=== PATIENT | male | born 1945 | race Caucasian/White ===

== ENCOUNTER 2022-12-15 01:45 | Emergency (ER) | payer OTHER ==
--- OUTSIDE RECORDS SUMMARY | 2022-12-15 01:48 | XMS REPORT | Continuity of Care Document ---
:1945 Author Organization [facility] t Address [address] [place] [address] Care Team Providers Name Role Phone [phone] Primary Care Physician Unavailable JOAQUIN AGUIRRE Attending Clinician Unavailable BING FLORENTINO CHI Attending Clinician Unavailable SYSTEM, PROVIDER NOT IN Attending Clinician Unavailable Jann HURST, Benny Pino Attending Clinician NOLVIA RAMSEY Attending Clinician Unavailable ADRY LANDERS Attending Clinician Unavailable MANN SIMPSON Attending Clinician Unavailable Bashir Attending Clinician Unavailable Yanira Jalloh MA Attending Clinician Unavailable STACY CALDERA Attending Clinician Unavailable Amador Langford Attending Clinician [phone] KIERRA PAREDES Attending Clinician Unavailable BARB ALFREDO Attending Clinician Unavailable JOSÉ MCCURDY Attending Clinician Unavailable ASMITA WELLINGTON Attending Clinician Unavailable UMESH SUERO Attending Clinician Unavailable MCKINLEY MAGANA Attending Clinician Unavailable JOAQUIN AGUIRRE Admitting Clinician Unavailable BING FLORENTINO CHI Admitting Clinician Unavailable Bashir Admitting Clinician Unavailable BARB ALFREDO Admitting Clinician Unavailable ASMITA WELLINGTON Admitting Clinician Unavailable MCKINLEY MAGANA Admitting Clinician Unavailable Payers Payer Name Policy Type Policy Number Effective Date Expiration Date S guero [facility] MEDICARE [id number] 2021 ADVANTAGE 00:00:00 [facility] [id number] (MEDICARE 00:00:00 REPLACEMENT/ADVANTA GE - PPO) HUMANA CHOICE [id number] 2016 MEDICARE PPO 00:00:00 Problems Condition Condition Condition Status Onset Resolution Last Treating Co mments Source Name Details Category Date Date Treatment Clinician Date 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 Found on CT Scan 2010 Kidney Kidney Disease Active Overview: Method i stones stones 10-[address] 00:00: g of this Hospita 00 note l might be different from the original. 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 09-29 coronary coronary 00:00: Hospit a artery artery 00 l Chronic Chronic Disease Active Methodi kidney kidney 03-26 disease, disease, 00:00: Hospit a stage I stage I 00 l Diabetes Diabetes Disease Active Metho di mellitus mellitus 09-29 00:00: Hospita 00 l Hyperlipid Hyperlipid Disease Active 2007-0 M ethodi emia emia 09-29 00:00: Hospita 00 l Hypothyroi Hypothyroi Disease Active 2007-0 M ethodi dism dism 09-29 00:00: Hospita 00 l Allergies, Adverse Reactions, Alerts Allergy Allergy Status Severity Reaction(s) Onset Inactive Treating Comm ents Source Name Type Date Date Clinician No Known Propensi Active Method i Drug ty to 02-21 Allergie adverse 00:00: Hospita s reaction 00 l s to drug Family History Family Member Diagnosis Comments Start Date Stop Date Source [facility] Social History Social Habit Start Date Stop Date Quantity Comments Source Alcohol intake 2022-07-16 2022-07-16 Current drinker Metho dist 00:00:00 00:00:00 of [facility] (finding) Alcohol Comment 2016-07-25 2016-07-25 social [facility] 00:00:00 00:00:00 Hospital Tobacco use and 2016-02-22 2016-02-22 Smokeless tobacco [facility] exposure 00:00:00 00:00:00 non-user Hospital Sex Ass[birth year] At [birth year] [facility] 00:[facility] Hospital Smoking Status Start Date Stop Date Source Never smoked tobacco [facility] Medications Ordered Filled Start Stop Current Ordering Indication Dosage Frequency Signature Comments Components Source Medication Medication Date Date Medication? Clinician (SIG) Name Name ezetimibe Yes TAKE 1 Method i (ZETIA) 10 3-07 TABLET(10 st mg tablet 00:00: MG) BY Hospit a 00 MOUTH l DAILY Accu-Chek Yes [id number] USE M ethodi Fastclix 2-[address] Lancet Drum 00:00: THREE Hospi ta misc 00 TIMES l DAILY insulin Yes INJECT 30 Metho di ASPART 2-[address] (NovoLOG 00:00: SUBCUTANEO Hos rivera FlexPen 00 USLY DAILY l U-100 Insulin) 100 unit/mL (3 mL) insulin pen montelukast Yes TAKE 1 Meth annabel (SINGULAIR) 2-[address] 10 mg 00:00: DAILY Hospita tablet 00 l Tresiba Yes INJECT 30 Metho di FlexTouch 2-[address] U-200 200 00:00: SUBCUTANEO Ho spita unit/mL (3 00 USLY DAILY l mL) subcutaneou s pen pen needle, Yes USE 4 Metho di diabetic 1-[address] (BD 00:00: DAY Hospita Ultra-Fine 00 l Short Pen Needle) 31 gauge x 5/16" needle ezetimibe 2021-09- No TAKE 1 Metho di (ZETIA) 10 2-20 03-07 TABLET(10 st mg tablet 00:00: 00:00 MG) BY Hospi ta 00 :00 MOUTH l DAILY levothyroxi Yes TAKE 1 Meth annabel ne 9-27 TABLET(125 st (SYNTHROID) 00:00: MCG) BY Hos rivera 125 mcg 00 MOUTH l tablet DAILY Synthroid 2021- No TAKE 1 Metho di 125 mcg 06-20- TABLET st tablet 00:00: 00:00 DAILY Hospita 00 :00 l blood sugar Yes [id number] CHECK Methodi diagnostic [address] strips 00:00: TIMES Hospita (Accu-Chek 00 DAILYDX l Guide test CODE: E strips) 11.9 strip test strips montelukast 2022- No TAKE 1 Met hodi (SINGULAIR) 02-12 02-[address] 10 mg 00:00: 00:00 DAILY. Hospita tablet 00 :00 l pen needle, 2022- No USE 4 Meth annabel diabetic 3-29 01-[address] (BD 00:00: 00:00 DAYDX Hospita Ultra-Fine 00 :00 CODE: l Short Pen E11.9 Needle) 31 gauge x 5/16" needle ezetimibe 2021- No 10mg QD Take 1 Metho di (ZETIA) 10 -18 12-20 tablet (10 st mg tablet 00:00: 00:00 mg total) Ho spita 00 :00 by mouth l daily. Tresiba 2022- No INJECT 30 Meth annabel FlexTouch 1-25 02-[address] U-200 200 00:00: 00:00 SUBCUTANEO H ospita unit/mL (3 00 :00 USLY DAILY l mL) subcutaneou s pen insulin 2022- No INJECT 30 Meth annabel ASPART 1-16 02-[address] (NovoLOG 00:00: 00:00 SUBCUTANEO Ho spita Flexpen 00 :00 USLY DAILY l U-100 Insulin) 100 unit/mL (3 mL) insulin pen Accu-Chek 2020-09- No [id number] USE Methodi Fastclix 11-25 02-[address] Lancet Drum 00:00: 00:00 THREE Hosp pritesh misc 00 :00 TIMES l DAILY Synthroid 2020-09- No TAKE 1 Metho di 125 mcg 09-29- TABLET st tablet 00:00: 00:00 DAILY Hospita 00 :00 l rosuvastati 2021-0 Yes 40mg QD Take 40 mg Methodi n (CRESTOR) 9-[address] 40 MG 12:16: daily. Hospita tablet 56 l montelukast 2021- No TAKE 1 Met hodi (SINGULAIR) 9-16 05-[address] 10 mg 00:00: 00:00 DAILY. Hospita tablet 00 :00 l polyethylen Yes 17g Q24H Take 17 g M ethodi e glycol 7-[address] (MIRALAX) 09:33: daily as Hosp pritesh 17 gram 10 needed for l packet constipati on. metoprolol Yes 25mg Q.5D Take 25 mg M ethodi succinate 7-[address] XL 09:33: (two) Hospita (TOPROL-XL) 04 times a l 25 mg 24 hr day. tablet lisinopril Yes 10mg QD Take 10 mg M ethodi (PRINIVIL,Z 7-[address] ESTRIL) 10 09:33: every Hospit a mg tablet 03 evening. l coenzyme 0 Yes 10mg Q.5D Take 10 mg Met hodi Q10 300 mg [address] capsule 09:32: (two) Hospita 52 times a l day. clopidogreL Yes 75mg Take 75 mg Methodi (PLAVIX) [address] mg tablet 09:32: Hospita 51 l apixaban Yes 5mg Q.5D Take 5 mg Meth annabel (ELIQUIS) 5 7-[address] mg tablet 09:32: (two) Hospita 44 times a l day. pen needle, 2021- No USE 4 Meth annabel diabetic 6-07 03-[address] (BD 00:00: 00:00 DAYDX Hospita Ultra-Fine 00 :00 CODE: l Short Pen E11.9 Needle) 31 gauge x 5/16" needle blood sugar 2021- No [id number] Testing 3 Methodi diagnostic 02-01 05-[address] strips 00:00: 00:00 dailyDX Hospita (Accu-Chek 00 :00 Code: l Guide test E11.9 strips) strip test strips blood-gluco Yes [id number] Use as Methodi se meter 02-[address] (ACCU-CHEK 00:00: DX CODE: Hos rivera GUIDE 00 E11.9 l GLUCOSE METER) misc blood Yes [id number] Use as Metho di glucose 02-[address] control 00:00: Hospita high,low 00 l (ACCU-CHEK GUIDE L1-L2 CTRL RAMON) solution alcohol Yes [id number] Use as Met hodi swabs pads, 02-[address] medicated 00:00: times Hospita 00 daily l amlodipine amlodipine No amlodipine Kayleigh 2.5 2.5 3-22 2.5 Orthope mg-atorvast mg-atorvast 00:00: mg-atorvas dic atin 10 mg atin 10 mg 00 tatin 10 Sports tablet RX tablet RX mg tablet Medicin by other MD by other MD RX by e other levothyroxi levothyroxi No levothyrox Kayleigh ne 25 mcg ne 25 mcg 3-22 ine 25 mcg Orthope tablet RX tablet RX 00:00: tablet RX dic by other MD by other MD 00 by other Sports Medicin e metoprolol metoprolol No metoprolol Kayleigh succinate succinate 3-22 succinate Orthope ER 25 mg ER 25 mg 00:00: ER 25 mg d ic tablet,exte tablet,exte 00 tablet,ext Sports nded nded ended Medicin release 24 release 24 release 24 e hr RX by hr RX by hr RX by other MD other other polyethylen polyethylen No polyethyle Kayleigh e glycol e glycol 3-22 ne glycol Or thope 1450 (bulk) 1450 (bulk) 00:00: 1450 dic powder RX powder RX 00 (bulk) Spo rts by other MD by other MD powder RX Medicin by other e docusate Yes 1{capsu Take 1 Meth annabel sodium 2-05 le} capsule by st (COLACE) 00:00: mouth as Hospi ta 100 MG 00 needed. l capsule omega-3 2011-09 Yes 1{tbl} QD Take 1 Method i fatty 1-[address] acids-fish 00:00: mouth Hospit a oil 00 every l 300-1,000 morning. mg capsule fluticasone Yes 2{spray QD 2 sprays Methodi (FLONASE) 9-28 } into each st 50 00:00: nostril Hospita mcg/actuati 00 daily. l on nasal spray Accu-Chek Accu-Chek No Accu-Chek Kayleigh Fastclix Fastclix Fastclix Yuliya hicks Lancet Drum Lancet Drum Lancet dic USE USE Drum USE Sports DIRECTED DIRECTED Medicin THREE TIMES THREE TIMES DIRECTED e DAILY DAILY THREE TIMES DAILY Accu-Chek Accu-Chek No Accu-Chek Kayleigh Guide test Guide test Guide test Orthope strips strips strips dic CHECK THREE CHECK THREE CHECK Sports TIMES DAILY TIMES DAILY THREE Medicin TIMES e DAILY BD BD No BD Kayleigh Ultra-Fine Ultra-Fine Ultra-Fine Orthope Short Pen Short Pen Short Pen dic Needle 31 Needle 31 Needle 31 Sports gauge x gauge x gauge x Medici n 02/11" 02/11" 02/11" e cefuroxime cefuroxime No cefuroxime Kayleigh axetil 250 axetil 250 axetil 250 Orthope mg tablet mg tablet mg tablet dic TAKE 1 TAKE 1 TAKE 1 Sports TABLET BY TABLET BY TABLET BY Medicin MOUTH TWICE MOUTH TWICE MOUTH e DAILY DAILY TWICE DAILY clopidogrel clopidogrel No clopidogre Kayleigh 75 mg 75 mg l 75 mg Orthope tablet TAKE tablet TAKE tablet dic 1 TABLET BY 1 TABLET BY TAKE 1 Sports MOUTH EVERY MOUTH EVERY TABLET BY Medicin DAY DAY MOUTH e EVERY DAY Eliquis 5 Eliquis 5 No Eliquis 5 Kayleigh mg tablet mg tablet mg tablet Orthope dic Sports Medicin e ezetimibe ezetimibe No ezetimibe Kayleigh 10 mg 10 mg 10 mg Orthope tablet tablet tablet dic Sports Medicin e fluticasone fluticasone No fluticason Kayleigh propionate propionate e Ort hope 50 50 propionate dic mcg/actuati mcg/actuati 50 S ports on nasal on nasal mcg/actuat M edicin spray,suspe spray,suspe ion nasal e nsion USE 1 nsion USE 1 spray,susp SPRAY IN SPRAY IN ension USE EACH EACH 1 SPRAY IN NOSTRIL NOSTRIL EACH DAILY DAILY NOSTRIL DAILY ID NOW ID NOW No ID NOW Kayleigh COVID-19 COVID-19 COVID-19 Ort hope Test Kit Test Kit Test Kit dic TEST TEST TEST Sports DIRECTED DIRECTED DIRECTED Med icin TODAY TODAY TODAY e lisinopril lisinopril No lisinopril Kayleigh 10 mg 10 mg 10 mg Orthope tablet tablet tablet dic Sports Medicin e meloxicam meloxicam No 1 BID meloxicam Kayleigh 7.5 mg 7.5 mg 7.5 mg Orthope tablet Take tablet Take tablet dic 1 tablet 1 tablet Take 1 Sport s twice a day twice a day tablet Medicin by oral by oral twice a e route for route for day by 30 days. 30 days. oral route start after start after for 30 finishing finishing days. steroids. steroids. start after finishing steroids. metoprolol metoprolol No metoprolol Kayleigh succinate succinate succinate Orthope ER 50 mg ER 50 mg ER 50 mg dic tablet,exte tablet,exte tablet,ext Sports nded nded ended Medicin release 24 release 24 release 24 e hr hr hr montelukast montelukast No montelukas Kayleigh 10 mg 10 mg t 10 mg Orthope tablet RX tablet RX tablet RX dic by other MD by other MD by other Sports MD Medicin e Novolog Novolog No Novolog Kayleigh Flexpen Flexpen Flexpen Orthop e U-100 U-100 U-100 dic Insulin Insulin Insulin Sports aspart 100 aspart 100 aspart 100 Medicin unit/mL (3 unit/mL (3 unit/mL (3 e mL) mL) mL) subcutaneou subcutaneou subcutaneo s s us prednisone prednisone No prednisone Kayleigh 10 mg 10 mg 10 mg Orthope tablets in tablets in tablets in dic a dose pack a dose pack a dose Sports take 6 on take 6 on pack take Medicin day 1/5day day 1/5day 6 on day e 2/4day3/3da 2/4day3/3da 1/5day y4/2day5/1d y4/2day5/1d 2/4day3/3d ay6 take 6 ay6 take 6 ay4/2day5/ on day on day 1day6 take 1/5day 1/5day 6 on day 2/4day3/3da 2/4day3/3da 1/5day y4/2day5/1d y4/2day5/1d 2/4day3/3d ay6 ay6 ay4/2day5/ 1day6 rosuvastati rosuvastati No rosuvastat Kayleigh n 40 mg n 40 mg in 40 mg Ortho pe tablet tablet tablet dic Sports Medicin e Synthroid Synthroid No Synthroid Kayleigh 125 mcg 125 mcg 125 mcg Orthop e tablet tablet tablet dic Sports Medicin e tramadol 50 tramadol 50 No tramadol Kayleigh mg tablet mg tablet 50 mg Orth ope TAKE 1 TAKE 1 tablet dic TABLET BY TABLET BY TAKE 1 Spo rts MOUTH EVERY MOUTH EVERY TABLET BY Medicin 6 HOURS 6 HOURS MOUTH e NEEDED FOR NEEDED FOR EVERY 6 PAIN PAIN HOURS NEEDED FOR PAIN Tresiba Tresiba No Tresiba Kayleigh FlexTouch FlexTouch FlexTouch Orthope U-200 U-200 U-200 dic insulin 200 insulin 200 insulin Sports unit/mL (3 unit/mL (3 200 Med icin mL) mL) unit/mL (3 e subcutaneou subcutaneou mL) s pen s pen subcutaneo us pen Immunizations Ordered Immunization Filled Immunization Date Status Commen ts Source Name Name PFIZER COVID-19 MRNA 2021-11-17 Completed Meth odist VACCINATION 00:00:00 [facility] PFIZER COVID-19 MRNA 2020-11-11 Completed Meth odist VACCINATION 00:00:00 [facility] PFIZER COVID-19 MRNA 2020-10-21 Completed Meth odist VACCINATION 00:00:00 [facility] pneumococcal pneumococcal 2016-08-02 Completed Kayleigh polysaccharide PPV23 polysaccharide PPV23 00:00:00 [facility] Sports Medicin e Vital Signs Vital Name Observation Time Observation Value Comments Source WEIGHT 2020-05-11 09:30:00 95.3 kg Procedures Procedure Date / Time Performing Clinician Source Performed COMPREHENSIVE METABOLIC 2022-07-09 13:46:00 Benny Da Silva [facility] PANEL HEMOGLOBIN A1C 2022-07-09 13:46:00 Benny Da Silva [facility] LIPID PANEL 2022-07-09 13:46:00 Benny Da Silva [facility] THYROID STIMULATING 2022-07-09 13:46:00 Benny Da Silva [facility] HORMONE T4, FREE 2022-07-09 13:46:00 Benny Da Silva [facility] RADEX SPI LUMBOSAC 2/3 2022-05-20 00:00:00 Mick steinberg [facility] VIE[facility] Sports Medicine COMPREHENSIVE METABOLIC 2022-03-12 13:25:00 Benny Da Silva [facility] PANEL HEMOGLOBIN A1C 2022-03-12 13:25:00 Benny Da Silva [facility] LIPID PANEL 2022-03-12 13:25:00 Benny Da Silva [facility] MICROALBUMIN / 2022-03-12 13:25:00 Benny Da Silva [facility] CREATININE URINE RATIO THYROID STIMULATING 2022-03-12 13:25:00 Benny Da Silva [facility] HORMONE T4, FREE 2022-03-12 13:25:00 Benny Da Silva [facility] Colonoscopy 2020-05-03 00:00:00 Kayleigh Ortho pedic Sports Medicine Plan of Care Planned Activity Planned Date Details Comments Source Future Scheduled 2022-12-05 COVID-19 VACCINE (4 - [facility] Test 14:53:33 Booster for Pfizer series) [code = COVID-19 VACCINE (4 - Booster for Pfizer series)] Future Scheduled 2022-12-05 INFLUENZA VACCINE Method [facility] Test 14:53:33 [code = INFLUENZA VACCINE] Future Scheduled 2022-12-05 Hepatitis C screening [facility] Test 14:53:33 (procedure) [code = 165316878] Future Scheduled 2022-12-05 SHINGLES VACCINES (1 [facility] Test 14:53:33 of 2) [code = SHINGLES VACCINES (1 of 2)] Future Scheduled 2022-12-05 COLONOSCOPY SCREENING [facility] Test 14:53:33 [code = COLONOSCOPY SCREENING] Future Scheduled 2022-12-05 HEPATITIS B VACCINES [facility] Test 14:53:33 (1 of 3 - Risk 3-dose series) [code = HEPATITIS B VACCINES (1 of 3 - Risk 3-dose series)] Future Scheduled 2022-12-05 65+ [facility] 14:53:33 VACCINE (2 - PCV) [code = 65+ PNEUMOCOCCAL VACCINE (2 - PCV)] Future Scheduled 2022-12-05 DIABETIC FOOT EXAM [facility] Test 14:53:33 [code = DIABETIC FOOT EXAM] Future Scheduled 2022-12-05 DIABETES: RETINAL EYE Me [facility] Test 14:53:33 EXAM [code = DIABETES: RETINAL EYE EXAM] Encounters Start End Encounter Admission Attending Care Care Encounter Source Date/Time Date/Time Type Type Clinicians Facility Department ID 2022-11-15 Outpatient TIMOTHYEVGENY Susan/Hep/Nu [id number] 12:55:51 JOAQUIN t Anders n 2022-06-01 Outpatient BING FLORENTINO EVGENY Susan/Hep/Nu [id number] 10:39:14 t [facility] n 2022-01-16 Outpatient SYSTEM, EVGENY PEPPER [id number] 12:34:59 PROVIDER Kapil middleton 2021-10-05 Outpatient SYSTEM, EVGENY PEPPER [id number] 09:05:44 PROVIDER Kapilrose middleton 2021-08-20 Outpatient SYSTEM, EVGENY PEPPER [id number] 11:46:31 PROVIDER Kapilrose middleton 2021-07-12 Outpatient SYSTEM, EVGENY PEPPER [id number] 13:55:47 PROVIDER Kapilrose middleton 2022-12-03 2022-12-03 Refill Jann, 1.2.840.1 [id number] Methodi 00:00:00 00:00:00 Benny Pino 08413.1.1 811 s t 3.430.2.7 Hospit a .3.766950 l .8 2022-11-07 2022-11-07 Outpatient BOZENA RAMSEY, EVGENY PEPPER [id number] 07:20:20 07:20:20 NOLVIA middleton 2022-11-04 2022-11-04 Refill Da Silva, 1.2.840.1 [id number] Methodi 00:00:00 00:00:00 Benny Pino 98636.1.1 137 s t 3.430.2.7 Hospit a .3.893216 l .8 2022-11-02 2022-11-02 Refill Jann, 1.2.840.1 [id number] Methodi 00:00:00 00:00:00 Benny Pino 01136.1.1 011 s t 3.430.2.7 Hospit a .3.415287 l .8 2022-11-02 2022-11-02 Refsuzanna Da Silva, 1.2.840.1 [id number] Methodi 00:00:00 00:00:00 Benny Pino 80109.1.1 218 s t 3.430.2.7 Hospit a .3.708046 l .8 2022-10-09 2022-10-09 Refsuzanna Da Silva, 1.2.840.1 [id number] Methodi 00:00:00 00:00:00 eBnny Pino 28448.1.1 439 s t 3.430.2.7 Hospit a .3.178087 l .8 2022-09-17 2022-09-17 Danielle Da Silva, 1.2.840.1 [id number] Methodi 00:00:00 00:00:00 Benny Pino 05199.1.1 841 s t 3.430.2.7 Hospit a .3.054477 l .8 2022-08-02 2022-08-02 Outpatient ADRY HERRON MDA MDA [id number] 12:29:08 23:59:00 Kapil middleton 2022-08-02 2022-08-02 Outpatient BOZENA SIMPSON MDA MDA [id number] 11:38:15 12:28:00 Carrillo middleton 2022-07-16 2022-07-16 Telemedici Jann, 1.2.840.1 [id number] Methodi 09:00:00 09:33:43 ne Benny Pino 39426.1.1 866 s t 3.430.2.7 Hospit a .3.791191 l .8 2022-07-16 2022-07-16 Outpatient Paul QUAN AOSHERYL [id number] Kayleigh 00:00:00 00:00:00 Tone [id number] Orth ope dic Sports Medicin e 2022-07-16 2022-07-16 Alex Jalloh, 1.2.840.1 [id number] Methodi 00:00:00 00:00:00 Only Yanira 54396.1.[address] 3.430.2.7 Hospit a .3.919112 l .8 2022-07-16 2022-07-16 Outpatient [facility] [id number] Stites 00:00:00 00:00:[address] 2022-06-25 2022-06-25 Refill Jann, 1.2.840.1 [id number] Methodi 00:00:00 00:00:00 Benny J. 76442.1.1 072 s t 3.430.2.7 Hospit a .3.804472 l .8 2022-06-20 2022-06-20 Refsuzanna Da Silva, 1.2.840.1 [id number] Methodi 00:00:00 00:00:00 Benny J. 68263.1.1 648 s t 3.430.2.7 Hospit a .3.555831 l .8 2022-05-23 2022-05-23 Outpatient STACY POOLE [facility] [id number] 08:39:17 09:48:33 Kapil middleton 2022-05-20 2022-05-20 Outpatient FOG_Umesh QUAN AO [id number] Kayleigh 00:00:00 00:00:00 Tone [id number] Orth ope dic Sports Medicin e 2022-05-20 2022-05-20 Amador QUAN [place] - Ortho 2021lea 00:00:00 00:00:00 Primitivo Conde MD: [id number] FOG_Ofc dic [facility] [place], [place] [phone] , Ph. [phone] 2022-05-20 2022-05-20 Outpatient AVELINA Langford [id number] 00:00:00 00:00:00 Amador Echols [id number] 2022-04-22 2022-04-22 Outpatient FOG_Umesh QUAN AOSM [id number] Kayleigh 00:00:00 00:00:00 Tone [id number] [facility] ope dic Sports Medicin e 2022-03-19 2022-03-19 Telemedici Jann, 1.2.840.1 [id number] Methodi 09:00:00 09:20:07 torey Pino 67392.1.1 052 s t 3.430.2.7 Hospit a .3.389168 l .8 2022-03-19 2022-03-19 Alex Jalloh 1.2.840.1 [id number] Methodi 00:00:00 00:00:00 Only Yanira 11923.1.[address] 3.430.2.7 Hospit a .3.916608 l .8 2022-03-19 2022-03-19 Outpatient [facility] [id number] [address] [place] [address] 00:00:00 00:00:[address] 2022-02-13 2022-02-13 Refsuzanna Da Silva, 1.2.840.1 [id number] Methodi 00:00:00 00:00:00 Benny Pino 82408.1.1 870 s t 3.430.2.7 Hospit a .3.298140 l .8 2022-02-12 2022-02-12 Refsuzanna Da Silva 1.2.840.1 [id number] Methodi 00:00:00 00:00:00 Benny Pino 63259.1.1 068 s t 3.430.2.7 Hospit a .3.626573 l .8 2022-01-11 2022-01-11 Outpatient ADRY HERRON [facility] [id number] 13:01:48 23:59:00 Kapil middleton 2021-12-25 2021-12-25 Danielle Jalloh 1.2.840.1 [id number] Methodi 00:00:00 00:00:[address] 3.430.2.7 Hospit a .3.519442 l .8 2021-11-27 2021-11-27 Outpatient EL LENA, KIERRA MDA MDA [id number] 12:50:31 23:59:00 Kapil middleton 2021-11-20 2021-11-20 Outpatient [facility] [id number] Stites 00:00:00 00:00:[address] 2021-11-17 2021-11-17 Outpatient EL PISCORAZON, MDA MDA [id number] 10:50:22 10:50:22 NOLVIA Kapil middleton 2021-11-13 2021-11-13 Outpatient EL LENA, KIERRA MDA MDA [id number] 09:43:48 23:59:00 Kapil middleton 2021-11-06 2021-11-06 Outpatient EL LENA, KIERRA MDA MDA [id number] 08:45:27 23:59:00 Kapil middleton 2021-10-31 2021-10-31 Outpatient EL SAYDA, MDA MDA [id number] 14:41:04 16:24:47 BARB middleton 2021-10-30 2021-10-30 Outpatient EL LENA, KIERRA MDA MDA [id number] 08:43:44 23:59:00 Kapil middleton 2021-10-16 2021-10-16 Outpatient EL LENA, KIERRA MDA MDA [id number] 08:44:20 23:59:00 Kapil middleton 2021-10-11 2021-10-11 Outpatient EL SAYDA, MDA Silvio [facility] [id number] 10:14:00 15:00:00 BARB middleton 2021-10-10 2021-10-10 Outpatient EL LENA, KIERRA MDA MDA [id number] 10:41:13 23:59:00 Kapil middleton 2021-10-04 2021-10-04 Outpatient EL LENA, KIERRA MDA MDA [id number] 12:37:05 23:59:00 Kapil middleton 2021-09-26 2021-09-26 Outpatient EL CALLI, MDA MDA [id number] 07:11:00 23:59:00 JOSÉ middleton 2021-09-26 2021-09-26 Outpatient EL SAYDA, MDA MDA [id number] 15:32:22 15:50:29 BARB middleton 2021-09-26 2021-09-26 Outpatient EL BRAULIO, MDA MDA [id number] 08:22:37 14:27:08 NOLVIA middleton 2021-09-26 2021-09-26 Outpatient EL CALLI, MDA MDA [id number] 08:22:57 08:22:57 JOSÉ middleton 2021-09-26 2021-09-26 Outpatient EL CALLI, MDA MDA [id number] 07:11:59 08:16:13 JOSÉ middleton 2021-09-26 2021-09-26 Outpatient EL CALLI, MDA MDA [id number] 06:06:17 07:10:00 JOSÉ middleton 2021-09-26 2021-09-26 Outpatient EL CALLI, MDA MDA [id number] 06:33:00 06:33:00 JOSÉ middleton 2021-09-17 2021-09-17 Outpatient KIERRA PAREDES MDA MDA [id number] 07:28:18 23:59:00 Kapil middleton 2021-08-15 2021-08-15 Outpatient EL SAYDA, MDA MDA [id number] MD 14:39:00 16:04:07 BARB middleton 2021-08-15 2021-08-15 Outpatient EL SAYDA, MDA MDA [id number] MD 14:13:41 14:13:41 BARB middleton 2021-08-15 2021-08-15 Outpatient EL SAYDA, MDA MDA [id number] 00:00:00 00:00:00 BARB middleton 2021-08-09 2021-08-09 Outpatient [facility] [id number] [place] 00:00:00 00:00:[address] 2021-07-13 2021-07-13 Outpatient EL ADRY LANDERS MDA MDA [id number] 13:43:20 23:59:00 Kapil middleton 2021-05-24 2021-05-24 Outpatient EL STACY CALDERA MDA MDA [id number] 09:38:46 10:52:09 Kapil middleton 2021-05-17 2021-05-17 Outpatient STACY POOLE MDA MDA [id number] 00:00:00 00:00:00 Kapil middleton 2021-04-03 2021-04-03 Outpatient [facility] [id number] [address] 00:00:00 00:00:00 211 Method i 2021-03-21 2021-03-21 Outpatient AMISH, [facility] 021 [id number] Stites 00:00:00 00:00:00 ASMITA 446 Method i 2021-03-14 2021-03-14 Outpatient ALONSOY, [facility] 021 05 [place] 00:00:00 00:00:00 ASMITA 136 Method i 2020-12-08 2020-12-08 Outpatient DA SILVA, [facility] [id number] [place] 00:00:00 00:00:00 BENNY 259 Method i 2020-12-08 2020-12-08 Outpatient DA SILVA, [facility] [id number] [place] 00:00:00 00:00:00 BENNY 098 Method i 2020-08-01 2020-08-01 Outpatient DA SILVA, [facility] [id number] [place] 00:00:00 00:00:00 BENNY 416 Method i 2020-06-26 2020-06-26 Outpatient EL OSAI, MDA MDA [id number] 14:45:16 15:41:20 UMESH middleton 2020-06-21 2020-06-21 Outpatient EL OSAI, MDA MDA [id number] 10:06:52 23:59:00 UMESH middleton 2020-05-11 2020-05-11 Outpatient STACY POOLE MDA MDA [id number] 09:25:20 10:55:40 Kapil middleton 2020-05-02 2020-05-02 Outpatient DA SILVA, [facility] [id number] [place] 00:00:00 00:00:00 BENNY [address] 2020-04-26 2020-04-26 Outpatient STACY POOLE MDA MDA [id number] 00:00:00 00:00:00 Kapil middleton 2020-03-21 2020-03-21 Outpatient EL OSAI, MDA MDA [id number] 11:15:55 11:42:13 UMESH Kapil celina middleton 2020-02-09 2020-02-09 Outpatient JANN [facility] [id number] [place] 00:00:00 00:00:00 BENNY [address] 2019-11-18 2019-11-18 Outpatient CHINO, [facility] 031 [id number] [place] 00:00:00 00:00:00 MCKINLEYAYO Ospina[address] [facility] Results Test Description Test Time Test Comments Results Result Comments Source Comprehensive metabolic panel 2022-07-10 04:15:00 Test Item Value Reference Range Interpretation Comme nts Glucose (test code = 147 mg/dL 65-99 H Fastin g reference 2345-7) interval For so meone without known d iabetes, a glucosevalue >125 mg/dL indicates that they may havedi abetes and this should be confirmed with afollow-up test . BUN (test code = 3094-0) 23 mg/dL 7-25 Creatinine (test code = 1.26 mg/dL 0.70-1.28 2160-0) eGFR (test code = 8257) 59 See_Comment L The eGFR is based on the CKD-EPI 202 1 equation. To ca lculate the new eGFR fr om a previous Creati nine or Cystatin Cresul t, go to https://www.kid beau.org/ professionals/k doqi/gfr %5Fcalculator [Automated mess age] The system which ge nerated this result tra nsmitted reference range : > OR = 60 mL/min/1.73m 2. The reference range was not used to interpr et this result as normal/abnormal . BUN/creatinine ratio NOT APPLICABLE See_Comment [Aut omated message] (test code = 3097-3) The [employer] tem which generated this result transmitted ref erence range: 6 - 22 ( calc). The reference r eriberto was not used to int erpret this result as normal/abnormal . Sodium (test code = 137 mmol/L 411-733 8752-2) Potassium (test code = 4.8 mmol/L 3.5-5.3 2823-3) Chloride (test code = 102 mmol/L 98-110 2075-0) CO2 (test code = 2027-) 29 mmol/L 20-32 Calcium (test code = 9.3 mg/dL 8.6-10.3 79744-1) Protein (test code = 6.4 g/dL 6.1-8.1 2885-2) Albumin, S (test code = 4.1 g/dL 3.6-5.1 1751-7) Globulin, total (test 2.3 See_Comment [Auto mated message] code = 71994-9) The system w [facility] generated this result transmitted ref erence range: 1.9 - 3. 7 g/dL (calc). The ref erence range was not u sed to interpret this result as normal/abnor mal. Albumin/globulin ratio 1.8 See_Comment [Aut omated message] (test code = 1759-0) The sys tem which generated this result transmitted ref erence range: 1.0 - 2. 5 (calc). The ref erence range was not u sed to interpret this result as normal/abnor mal. Total bilirubin (test 1.0 mg/dL 0.2-1.2 code = 1975-2) Alkaline phosphatase 72 U/L 35-144 (test code = 6768-6) AST (test code = 1920-8) 33 U/L 10-35 ALT (test code = 1742-6) 29 U/L 9-46 BINTA (test code = BINTA) FASTING:YES FASTING: YES RAC (test code = RAC) Performing Organization Information: Site ID: [facility] Name: [facility] Address: [address] [place] [id number] Director: Savage Hassan Lab Interpretation (test Abnormal code = 31688-7) [facility] Center[facility] [id number] 04:15:00 Test Item Value Reference Range Interpretation Comments Cholesterol, total 112 mg/dL <=200 (test code = 2093-3) HDL cholesterol 49 mg/dL See_Comment [Automated (test code = 2085-9) message ] The system which generated this result transmitted reference range : > OR = 40. The reference range was not used to interpret this result as normal/abnormal . Triglycerides (test 81 mg/dL <=150 code = 2571-8) LDL cholesterol 47 mg/dL (calc) Reference ra nge: calculated (test <100 Desira ble code = 53730-0) range <100 m g/dL for primary prevention; <70 mg/dL for patients with C HD or diabetic patients with > or = 2 CHD risk factors. LDL-C is now calculated using the Janie calculation, which is a validated novel method dee g better accuracy than the Friedewald equation in the estimation of LDL-C. Marcos Callaway S et al. WENDIE. 2013;310(19): 0257-1366 (http://educati on .[employer] [address] .com/faq/NOP888 ) Cholesterol/HDL 2.3 See_Comment [Automated ratio (test code = message] The 9830-1) system which generated this result transmitted reference range : <5.0 (calc). Th e reference range was not used to interpret this result as normal/abnormal . Non-HDL cholesterol 63 See_Comment For jorge ents with (test code = diabetes plus 1 36042-7) major ASCVD ris k factor, treatin g to a non-HDL-C goal of <100 mg/dL (LDL-C of <70 mg/dL) is considered a therapeutic option. [Automated message] The system which generated this result transmitted reference range : <130 mg/dL (calc). The reference range was not used to interpret this result as normal/abnormal . BINTA (test code = FASTING:YES BINTA) FASTING: YES RAC (test code = Performing RAC) Organization Information: Site ID: [facility] Name: [facility] Address: [address] [place] [id number] Director: Savage Hassan [facility] Center[facility] [id number] 04:15:00 Test Item Value Reference Interpretation Comments Range Hemoglobin A1C (test 7.0 See_Comment H For stephen eone without code = 4548-4) known diabete s, a hemoglobin A1cv alue of 6.5% or grea ter indicates that they may have diabet es and this should be confirmed with a follow-up test. For someone with kn own diabetes, a yong ue <7% indicates t hat their diabetes is well controlled and a value greater than or equal t o 7% indicates suboptimal cont rol. A1c targets rehana uld be individualiz ed based on durati on of diabetes, ag e, comorbid conditions, and other considerations. Currently, no consensus exist s regarding use ofhemoglobin A1 c for diagnosis o f diabetes for children. [Automated mess age] The system [employer] generated this result transmit vanita reference range : <5.7 % of total Hgb. The refere nce range was not u sed to interpret th is result as normal/abnormal . BINTA (test code = FASTING:YES BINTA) FASTING: YES RAC (test code = Performing RAC) Organization Information: Site ID: [facility] Name: [facility] Address: [address] [place] [address] Director: Savage Rinaldiridge Lab Interpretation Abnormal (test code = 62964-0) [facility] CenterT4, [id number] 04:15:00 Test Item Value Reference Range Interpretation Comments T4, free (test code 1.4 ng/dL 0.8-1.8 = 3024-7) BINTA (test code = FASTING:YES FASTING: YES BINTA) RAC (test code = Performing Organization RAC) Information: Site ID: [facility] Name: [facility] Address: [address] [place] [address] Director: [facility] Center[facility]yroid stimulating [id number] 04:15:00 Test Item Value Reference Range Interpretation Comments TSH (test 1.32 See_Comment [Automated mes marco a] code = The system [employer] 3016-3) generated this result transmit vanita reference range : 0.40 - 4.50 mIU /L. The reference r eriberto was not used to interpret this result as normal/abnormal . BINTA (test FASTING:YES FASTING: code = BINTA) YES RAC (test Performing code = RAC) Organization Information: Site ID: [facility] Name: [facility] Address: [address] [place] [address] Director: [facility]
[2022-12-15 02:45] LABS: Absolute Lymphocytes (CBC) 1.3 K/uL (0.7-4.9); MCV 92.8 fL (80-100); MPV 8.5 fL (7.6-11.3); RBC Red Blood Cell Count 4.85 M/uL (4.33-5.43)
[2022-12-15] MEDS ORDERED: MORPHINE 4 MG/ML SYR ONE (02:50)
[2022-12-15] MEDS ORDERED: FAMOTIDINE 20 MG/2 ML VIAL IV ONE (02:50)
[2022-12-15 03:04] LABS: Albumin 3.4 g/dL (3.4-5.0); Bilirubin Total 0.6 mg/dL (0.2-1.0); Potassium 4.2 mEq/L (3.5-5.1); Protein, Total 6.6 g/dL (6.4-8.2); Troponin High Sensitivity 30.9 pg/mL (<58.9)
[2022-12-15 04:42] LABS: Urine Blood Negative (Negative); Urine Glucose Negative (Negative); Urine Protein Negative (Negative); Urine Specific Gravity 1.015 (1.005-1.030); Urine pH 5.5 (5.0-7.0)
[2022-12-15 04:55] LABS: Urine Bacteria <20 /HPF (<20); Urine RBC <5 /HPF (None Seen)
--- NOTE | 2022-12-15 05:31 | ER ---
Nurse's Notes [facility] Name: Emir Roy Age: 77 yrs Sex: Male : 1945 Arrival Date: 12/15/2022 Time: 01:47 Bed 5 Private MD: Diagnosis: Abdominal pain, Generalized Presentation: 12/15 01:56 Chief complaint: Patient states: epigastric pain of 8 and lower abdominal pain,onset pf1 0000. 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 01:56 Coronavirus screen: Vaccine status: Patient reports receiving the 2nd dose of the covid pf1 vaccine. patient stated had 3 doses of Pfizer Client denies travel out of the [place] in the last 14 days. At this time, the client does not indicate any symptoms associated with coronavirus-19. Ebola Screen: Patient negative for fever greater than or equal to 101.5 degrees Fahrenheit, and additional compatible Ebola Virus Disease symptoms. Initial Sepsis Screen: Does the patient meet any 2 criteria? No. Patient's initial sepsis screen is negative. Does the patient have a suspected source of infection? No. Patient's initial sepsis screen is negative. Risk Assessment: Do you want to hurt yourself or someone else? Patient reports no desire to harm self or others. Onset of symptoms was December 15, 2022. 01:56 Method Of Arrival: Ambulatory pf1 01:56 Acuity: SID 3 pf1 Triage Assessment: 01:55 General: see nursing assessment. pf1 Historical: - Allergies: 02:54 No Known Allergies; pf1 Screenin:00 [facility] ED Fall Risk Assessment (Adult) History of falling in the last 3 months, pf1 including since admission No falls in past 3 months (0 pts) Confusion or Disorientation No (0 pts) Intoxicated or Sedated No (0 pts) Impaired Gait No (0 pts) Mobility Assist Device Used No (0 pt) Altered Elimination No (0 pt) Score/Fall Risk Level 0 - 2 = Low Risk Oriented to surroundings, Maintained a safe environment, Educated pt \T\ family on fall prevention, incl call for assistance when getting out of bed, Assessed \T\ reinforced patient's understanding of fall precautions, Provided non-skid footwear, Hourly rounding (assess needs \T\ fall precautionary measures) done, Used ambulatory aids as needed (educated on \T\ assisted with), Used gait belt as appropriate. 02:00 Abuse screen: Denies threats or abuse. Nutritional screening: No deficits noted. pf1 Tuberculosis screening: No symptoms or risk factors identified. Assessment: 01:55 General: Appears in no apparent distress. comfortable, well groomed, well developed, pf1 Behavior is calm, cooperative, appropriate for age, quiet. 01:55 Pain: Complains of pain in epigastric region and lower abdominal pain Pain currently is pf1 8 out of 10 on a pain scale. Pain began at 0000. Neuro: No deficits noted. Level of Consciousness is awake, alert, obeys commands, Oriented to person, place, time, situation. Cardiovascular: Capillary refill < 3 seconds Patient's skin is warm and dry. Respiratory: No deficits noted. Airway is patent Trachea midline Respiratory effort is even, unlabored, Respiratory pattern is regular, symmetrical, Breath sounds are clear bilaterally. GI: Abdomen is flat, non-distended, Bowel sounds present X 4 quads. Abd is soft and non tender X 4 quads. Reports lower abdominal pain, epigastric pain, normal bowel habits. : No deficits noted. No signs and/or symptoms were reported regarding the genitourinary system. 03:00 Reassessment: Patient appears in no apparent distress at this time. Patient and/or pf1 family updated on plan of care and expected duration. Pain level reassessed. Patient is alert, oriented x 3, equal unlabored respirations, skin warm/dry/pink. Patient states feeling better. Patient states symptoms have improved. Patient refused pain medications. 04:00 Reassessment: Patient appears in no apparent distress at this time. No changes from pf1 previously documented assessment. Patient and/or family updated on plan of care and expected duration. Pain level reassessed. Patient is alert, oriented x 3, equal unlabored respirations, skin warm/dry/pink. Patient states feeling better. Patient states symptoms have improved. Vital Signs: 01:56 BP 172 / 84; Pulse 57; Resp 15; Temp 97.9; Pulse Ox 100% on R/A; Weight 90.72 kg; pf1 Height 6 ft. 3 in. ; Pain 8/10; 03:00 BP 127 / 72; Pulse 60; Resp 16; Pulse Ox 98% on R/A; pf1 01:56 Body Mass Index 25.00 (90.72 kg, 190.5 cm) pf1 01:56 Pain Scale: Adult pf1 ED Course: 01:47 Patient arrived in ED. jj6 01:51 Flaco Laguerre DO is Attending Physician. ms3 02:00 Patient has correct armband on for positive identification. Placed in gown. Bed in low pf1 position. Call light in reach. Adult w/ patient. Client placed on continuous cardiac and pulse oximetry monitoring. NIBP monitoring applied. security monitor on. 02:39 Troponin HS Sent. pf1 02:39 CBC with Diff Sent. pf1 02:39 CMP Sent. pf1 02:39 Lipase Sent. pf1 02:41 Inserted saline lock: 20 gauge in right forearm, using aseptic technique. Blood oe collected. 02:52 Triage completed. pf1 02:55 No provider procedures requiring assistance completed. pf1 02:55 Patient maintains SpO2 saturation greater than 95% on room air. pf1 03:03 XRAY Chest (1 view) In Process Unspecified. EDMS 03:26 Umu pinon, RN is Primary Nurse. pf1 03:44 CT Abd/Pelvis - IV Contrast Only In Process Unspecified. EDMS 05:30 Johnny Cardenas DO is Referral Physician. ms3 05:30 Adam Rosales MD is Referral Physician. ms3 Administered Medications: 03:17 Not Given (Patient Refused): Famotidine IVP 20 mg IVP once; dilute with 10 mL 0.9% pf1 NaCl; give over 2 minutes 03:18 Not Given (Patient Refused): morphine IVP or IV 4 mg IVP once over 4 mins pf1 Outcome: 05:31 Discharge ordered by . ms3 Signatures: Dispatcher [employer] EDMS Yair Christian oe Flaco Laguerre DO DO ms3 Maryellen Travis jj6 Umu pinon, RN RN pf1
--- NOTE | 2022-12-15 05:31 | EDPHYS ---
Physician Documentation [facility] Name: Emir Roy Age: 77 yrs Sex: Male : 1945 Arrival Date: 12/15/2022 Time: 01:47 Bed 5 Private MD: ED Physician Flaco Laguerre HPI: 12/15 02:22 This 77 yrs old Male presents to ER via Unassigned with complaints of Chest Pain, ms3 Abdominal Pain. 02:22 77-year-old male with past medical history of atrial fibrillation, diabetes, shingles, ms3 hypertension, hyperlipidemia presents for abdominal pain that radiates to his upper abdomen that began at midnight. Patient states the pain is sharp and burning and rated 8/10. Patient denies nausea, vomiting, diaphoresis, diarrhea, fevers, chills. Patient denies alleviating or inciting factors. Historical: - Allergies: 02:54 No Known Allergies; pf1 ROS: 02:22 Constitutional: Negative for fever, and chills. Cardiovascular: Negative for chest ms3 pain, and palpitations. Respiratory: Negative for shortness of breath, cough, wheezing, and pleuritic chest pain. 02:22 MS/Extremity: Negative for injury and deformity, Skin: Negative for injury, rash, and discoloration, Neuro: Negative for headache, weakness, numbness, tingling. 02:22 Abdomen/GI: Positive for abdominal pain, Negative for nausea, vomiting, and diarrhea. 02:22 All other systems are negative. Exam: 02:22 Constitutional: This is a well developed, well nourished patient who is awake, alert, ms3 and in no acute distress. Head/Face: Normocephalic, atraumatic. Neck: Trachea midline, no cervical lymphadenopathy. Supple, full range of motion without nuchal rigidity, or vertebral point tenderness. No Meningismus. Chest/axilla: Normal chest wall appearance and motion. Nontender with no deformity. Respiratory: Lungs have equal breath sounds bilaterally, clear to auscultation and percussion. No rales, rhonchi or wheezes noted. No increased work of breathing, no retractions or nasal flaring. Abdomen/GI: Soft, non-tender, with normal bowel sounds. No distension or tympany. No guarding or rebound. No evidence of tenderness throughout. Skin: Warm, dry with normal turgor. Normal color with no rashes, no lesions, and no evidence of cellulitis. 02:22 Cardiovascular: Rate: normal, Rhythm: regular, Pulses: no pulse deficits are appreciated, Heart sounds: murmur, systolic. 02:22 ECG was reviewed by the Attending Physician. Vital Signs: 01:56 BP 172 / 84; Pulse 57; Resp 15; Temp 97.9; Pulse Ox 100% on R/A; Weight 90.72 kg; pf1 Height 6 ft. 3 in. ; Pain 8/10; 03:00 BP 127 / 72; Pulse 60; Resp 16; Pulse Ox 98% on R/A; pf1 01:56 Body Mass Index 25.00 (90.72 kg, 190.5 cm) pf1 01:56 Pain Scale: Adult pf1 MDM: 02:08 Patient medically screened. ms3 02:22 Differential diagnosis: abnormal EKG, acute myocardial infarction, chest wall pain, ms3 Abdominal pain vs Pancreatitis vs Diverticulitis. 04:38 ED course: Patient states his symptoms have resolved at this time. Awaiting CT ms3 abdomen/Pelvis results. Will obtain second troponin. 12/15 01:56 Order name: EKG; Complete Time: 01:56 4 12/15 02:12 Order name: Cardiac monitoring; Complete Time: 02:39 12/15 02:12 Order name: O2 Per Protocol; Complete Time: 02:39 12/15 02:12 Order name: O2 Sat Monitoring; Complete Time: 02:39 12/15 02:12 Order name: IV Saline Lock; Complete Time: 02:48 12/15 02:12 Order name: Labs collected and sent; Complete Time: 02:48 12/15 01:56 Order name: EKG - Nurse/Tech; Complete Time: 02:58 jb4 12/15 02:12 Order name: XRAY Chest (1 view) 3 12/15 02:12 Order name: CT Abd/Pelvis - IV Contrast Only 3 12/15 02:12 Order name: CMP; Complete Time: 03:56 ms3 12/15 02:12 Order name: CBC with Diff; Complete Time: 03:56 3 12/15 02:12 Order name: Lipase; Complete Time: 03:56 ms12/15 02:12 Order name: Troponin HS; Complete Time: 03:56 ms3 12/15 02:12 Order name: Urine Microscopic Only; Complete Time: 05:17 ms3 12/15 04:38 Order name: Troponin High Sensitivity; Complete Time: 05:17 ms3 12/15 04:42 Order name: Urine Dipstick-Ancillary; Complete Time: 05:17 EDMS EC:22 Rate is 64 beats/min. QRS Aurora is Normal. QRS interval is normal. Clinical impression: ms3 Atrial Paced. Interpreted by me. Reviewed by me. Administered Medications: 03:17 Not Given (Patient Refused): Famotidine IVP 20 mg IVP once; dilute with 10 mL 0.9% pf1 NaCl; give over 2 minutes 03:18 Not Given (Patient Refused): morphine IVP or IV 4 mg IVP once over 4 mins pf1 Disposition Summary: 12/15/22 05:31 Discharge Ordered Location: Home ms3 Condition: Stable ms3 Diagnosis - Abdominal pain, Generalized ms3 Followup: ms3 - With: Johnny Cardenas DO - When: 1 - 2 days - Reason: Recheck today's complaints Followup: ms3 - With: Adam Rosales MD - When: 1 - 2 days - Reason: Recheck today's complaints Discharge Instructions: - Discharge Summary Sheet ms3 - Abdominal Pain, Adult ms3 Forms: - Medication Reconciliation Form ms3 - Thank You Letter ms3 - Antibiotic Education ms3 - Prescription Opioid Use ms3 Signatures: Dispatcher [employer] EDMS Puneet Lopez, RN RN jb4 Flaco Laguerre DO DO ms3 Umu pinon RN RN pf1
[2022-12-15 06:39] VITALS: TEMP 97.9
[2022-12-15 06:44] VITALS: BP 146/78; O2SAT 100
--- NOTE | 2022-12-16 13:21 | RAD REPORT ---
EXAM DESCRIPTION: CT - Abdomen Pelvis W Contrast - 12/15/2022 6:22 am ADDENDUM #1 Addendum: I discussed the findings with Dr. Solitario at 8:35 AM. 8 cine series have been added to the file since the original interpretation was submitted. Please see the following changes to the original report based on these new cine images. Uterus: The uterus measures 9.1 x 5.5 cm x 5.3 cm on transvaginal series 1-1 images 3 and 5. The endo metrium is 13.6 mm on image 16 of the same series. An intrauterine endometrial device is seen on image 47. And also well demonstrated on series 1-6. A uterine fibroid is not suggested on the transvaginal series 1-1. The cervix measures 1.8 cm on image 57. There is a cervical cyst on image 23 measuring 7 mm. Addition al smaller cervical cysts are seen on cine series 1-2. Left ovary: The left ovary dimensions on transvaginal series 1-1 images 63 and 64 are 3.7 x 4.7 x 3.5 cm. A complex septated cystic mass in the left ovary with acoustic enhancement is seen on transvagin al series 1-1 image 30 measuring 3.4 x 3.3 cm. This could be a hemorrhagic cyst or endometrioma. Ther e is Doppler flow to the peripheral left ovary substance surrounding the central septated cystic mass on transvaginal series 1-1 image 54 with peak systolic velocity around 25 cm/s. There was no flow in the central complex cystic mass noted. Right ovary: An enlarged right ovary is demonstrated on transvaginal series 1-1 image 48 measuring 6. 5 x 5.2 x 6.7 cm. The right ovary is in close proximity to the uterus. There is Doppler flow to the r ight ovary on image 50 with systolic velocity around 20 cm/s. A central vascular ovarian echodensity/ mass on transvaginal series 1-1 image 48 is seen. There are no caliper measurements provided. Ovarian neoplasm is possible. IMPRESSION: 1. Intrauterine device. 2. 3.4 x 3.3 cm left ovary complex cystic mass. 3. Enlarged right ovary with a central complex mass. Ovarian neoplasm is possible. 4. Thickened uterine endometrium. 5. Recommend follow-up MRI and SPD TECH consultation. Electronically signed by: Anshu Danielson MD 12/15/2022 8:59 AM CDT End of Addendum : 04/30/1984. TECHNIQUE: Payne scale transabdominal and transvaginal ultrasound of the pelvis with duplex doppler a nd spectral analysis. CLINICAL HISTORY: ABD PAIN. COMPARISON: CT scan December 15, 2022 at 2:11 AM showed enlarged left ovary and lobular uterine contour . FINDINGS: Uterus: The uterus is anteverted. On series 1-1 images 3 and 5 the initial provided uterine dimensions are 10.1 x 5.7 x 5.9 cm. These d imensions include a hypoechoic heterogeneous pedunculated echodensity marginal to the uterine fundus, extending into the right adnexa. Later in the exam on images 27 and 28 the provided uterine dimensions excluding this echodensity are 7.5 x 4.5 x 6 cm. On series 3 this hypoechoic echodensity is measured and has been labeled right ovary. The dimensions are 5.6 x 4.2 x 3.9 cm . Nevertheless it is not clear to me if this is in fact right ovary (or a right ovarian mass) or a hypo echoic posterior intramural and pedunculated fundal fibroid extending into the right adnexa. The endometrial thickness is 10.5 mm. An intrauterine device is better seen on the CT scan. Right ovary: Enlarged right ovary or ovarian mass not distinguish from a potential pedunculated uteri ne fibroid as discussed above. Note that there is no corresponding right ovarian mass suggested on CT. I would recommend MRI for further imaging evaluation. Left ovary: The left ovary measures 4.1 x 5.0 x 4.1 cm. *There is a hypoechoic cyst on image 38 that measures 3.1 x 3.4 cm. Recommendations: 3.4 cm left ovarian benign functional cyst. No follow-up imaging is recommended. Reference: Radiology 2019 Nov;293(2):359-371 There is no other mass. There is normal arterial and venous doppler flow. Peak systolic velocity: 80 cm/s. Resistive index: -. Adnexa: No other mass. There is no free fluid in the cul-de-sac. CLINICAL HISTORY: 1. Pedunculated right uterine fibroid versus enlarged right ovary/ovarian mass. Re commend MRI. 2. 3.4 cm left ovarian hemorrhagic cyst or endometrioma with increased ovarian Doppler velocity. 3. Intrauterine device better seen on the CT. Electronically signed by: Anshu Danielson MD 12/15/2022 7:41 AM CDT Due to temporary technical issues with the PACS/Fluency reporting system, reports are being signed by the in house radiologists without review as a courtesy to insure prompt reporting. The interpreting radiologist is fully responsible for the content of the report.
--- NOTE | 2022-12-16 13:24 | RAD REPORT ---
EXAM DESCRIPTION: RAD - Chest Single View - 12/15/2022 3:01 am CLINICAL HISTORY: The patient is 77 years old and is Male; CHEST PAIN TECHNIQUE: Frontal view of the chest. COMPARISON: No relevant prior studies available. FINDINGS: Lungs: Mildly prominent interstitial markings. No consolidation. Pleural space: Unremarkable. No pneumothorax. Heart: Unremarkable. Mediastinum: Unremarkable. Bones/joints: Median sternotomy wires. Tubes, lines and devices: Left-sided pacemaker/AICD. IMPRESSION: No acute findings in the chest. Electronically signed by: Bony Montgomery MD 12/15/2022 3:40 AM CDT Due to temporary technical issues with the PACS/Fluency reporting system, reports are being signed by the in house radiologists without review as a courtesy to insure prompt reporting. The interpreting radiologist is fully responsible for the content of the report.
--- NOTE | 2022-12-16 17:37 | EKG ---
Test Date: 2022-12-15 Test Time: 02:13:19 Facilitator: BRI MEASUREMENT RESULTS: Intervals: Rate: 64 FL: 172 QRSD: 102 QT: 424 QTc: 437 [place]: P: 48 FL: 172 QRS: 42 T: 31 INTERPRETIVE STATEMENTS: Electronic atrial pacemaker Compared to ECG 04/23/2013 16:51:34 Sinus rhythm no longer present Sinus arrhythmia no longer present T-wave abnormality no longer present Prolonged QT interval no longer present Electronically Signed On 12-16-22 17:35:42 CDT by Adam Rosales
== END 2022-12-15 06:04 | disposition home or self-care (01) ==
LOC: ER 01:45
DX: R10.84 Generalized abdominal pain (principal); R07.9 Chest pain, unspecified; I48.91 Unspecified atrial fibrillation; E11.9 Type 2 diabetes mellitus without complications; B02.9 Zoster without complications; I10 Essential (primary) hypertension; E78.2 Mixed hyperlipidemia
CPT/HCPCS: 93005; 85025; 36415; 84484 ×2; 83690; 80053; 74177; 71045; 99285; Q9967; 81003; 81015

== ENCOUNTER 2024-06-16 07:26 | Day surgery (SDC) | payer OTHER ==
[2024-06-16 08:10] LABS: Absolute Basophils 0.1 K/uL (0-0.5); Absolute Eosinophils 0.1 K/uL (0-0.5); Absolute Lymphocytes (CBC) 1.5 K/uL (0.7-4.9); Absolute Monocytes 0.7 K/uL (0.1-1.3); Absolute Neutrophil 4.1 K/uL (1.8-8.0); Basophils % 1.1 % (0-1.3); Eosinophils % 2.3 % (0-4.4); Hematocrit 43.2 % (39.6-49.0); Hemoglobin 14.4 g/dL (13.6-17.9); Lymphocytes % 22.4 % (15.3-44.8); MCH 31.5 pg (27.0-35.0); MCHC 33.4 g/dL (32.0-36.0); MCV 94.4 fL (80-100); MPV 8.1 fL (7.6-11.3); Monocytes % 11.4 % (3.3-12.3); Neutrophils % 62.8 % (41.7-73.7); Nucleated Red Blood Cells % 0.1 % (0-0); Platelets 317 thou/uL (152-406); RBC Red Blood Cell Count 4.58 M/uL (4.33-5.43); Red Cell Distribution Width 13.8 % (12.1-15.2)
[2024-06-16] MEDS ORDERED: CEFAZOLIN SODIUM 1 GM/VIAL ONE (08:21)
[2024-06-16] MEDS ORDERED: NA CHLORIDE 0.9% 1,000 ML ONE (08:21)
[2024-06-16] MEDS ORDERED: FENTANYL CITR 100 MCG/2 ML ONE (08:39)
[2024-06-16] MEDS ORDERED: LIDOCAINE 2% MPF 5 ML VIAL ONE (08:39)
[2024-06-16] MEDS ORDERED: propofoL 200 MG/20 ML VIAL IV ONE (08:39)
--- NOTE | 2024-06-16 09:34 | RAD REPORT ---
EXAMINATION: TWO VIEW CHEST XR CLINICAL INDICATION: Male, 79 years old. [facility] MAIN SDS 3 PREOP. Hypertension TECHNIQUE: 2 view radiographs of the chest were performed. COMPARISON: 12/15/2022 FINDINGS: The lungs are well inflated and clear. Left chest wall pacer in place. No pneumothorax or sizable eff usion. The heart is normal in size. Mediastinal contours are unremarkable. IMPRESSION: No acute or significant abnormalities.
[2024-06-16] MEDS ORDERED: ROCURONIUM 50 MG/5 ML VIAL IV ONE ×2 (09:49→10:06)
[2024-06-16] MEDS ORDERED: ONDANSETRON 4 MG/2 ML VIAL ONE (10:06)
[2024-06-16] MEDS ORDERED: NEOSTIGMINE 1 MG/ML -10 ML VIAL ONE (10:06)
[2024-06-16] MEDS ORDERED: GLYCOPYRROLATE 0.2 MG/ML SYR ONE (10:06)
[2024-06-16] MEDS ORDERED: EPHEDRINE SULF 50 MG/ML VIAL ONE (10:26)
--- NOTE | 2024-06-16 11:11 | P.BOP ---
Preoperative diagnosis: Recurrent tender right inguinal hernia Postoperative diagnosis: same Primary procedure: Open repair of Recurrent tender right inguinal hernia with mesh Estimated blood loss: <10cc Specimen: sac and content Findings: as above Anesthesia: General Complications: None Implants: mesh plug Transferred to: Recovery Room Condition: Good
[2024-06-16] MEDS ORDERED: CODEINE 30MG/APAP 300MG TAB ONE (12:09)
[2024-06-16] MEDS ORDERED: TAMSULOSIN 0.4 MG SR CAP ONE (12:09)
[2024-06-16] MEDS: CODEINE 30MG/APAP 300MG TAB PO ONE (12:19)
[2024-06-16] MEDS: TAMSULOSIN 0.4 MG SR CAP PO ONE (12:20)
[2024-06-16 13:20] VITALS: BP 138/69; TEMP 97; O2SAT 97
--- NOTE | 2024-06-17 12:22 | EKG ---
Test Date: 2024-06-16 Test Time: 07:44:05 Poultry Slaughterer: LYNSEY MEASUREMENT RESULTS: Intervals: Rate: 62 TX: 178 QRSD: 100 QT: 490 QTc: 497 [place]: P: 80 TX: 178 QRS: 70 T: 87 INTERPRETIVE STATEMENTS: Electronic atrial pacemaker Prolonged QT Abnormal ECG Compared to ECG 12/15/2022 02:13:19 Prolonged QT interval now present Electronically Signed On 06-17-24 12:17:50 CDT by Saqib Gold
--- NOTE | 2024-06-17 16:18 | OP ---
Surgeon: Michael Rankin MD Preoperative Diagnosis: Recurrent tender right inguinal hernia. Postoperative Diagnosis: Recurrent tender right inguinal hernia. Procedure: Open repair of recurrent tender right inguinal hernia with mesh. Estimated Blood Loss: Less than 10 cc. Specimen: Hernia sac and content. Anesthesia: General plus local. Implants: A mesh plug. Indications: This is a case of a 79-year-old patient who came to us with a history of tender right i nguinal hernia, recurrent. He had it fixed the first time long time ago. The benefits, alternatives , and risks of repair of right inguinal hernia with possible mesh fully explained, which include, but not limited to, infection, bleeding, damage to adjacent structures, anesthesia complication, recurre nce, chronic pain, chronic numbness, [place], and even . He also understands this may not relieve an y symptoms. He might need more than one surgical intervention. He does not recall if he had mesh in that area or not. He noted it was long time ago. So we explained to him sometimes we might not rem ove the previous mesh. We may reinforce the area, may have some numbness associated, may have more d ifficult swelling and ecchymosis due to going through scar tissue. He understood. Description Of Procedure: The patient was brought to the operating room, placed in supine position. Anesthesia was done without complication. Right inguinal region was prepped and draped in a sterile fashion. Local anesthesia was applied followed by sharp incision of the skin. We noticed that his incisions were a little bit lower than what we wanted to put our incisions. So we had to utilize ano ther incision in this case through a virgin area. We went into the inguinal canal. We opened the Sc arpa's fascia, opened the external oblique aponeurosis in the direction of the fibers, identified the ilioinguinal, iliohypogastric nerve protected behind the external oblique aponeurosis. We noticed a direct defect medially. I saw that after this from the spermatic cord, we were able to i mbricate that. It was too big, so I proceeded to open the hernia sac, reduced the content, suture li gated the hernia sac and the content and then imbricated this defect with the help of a plug. The pl ug mesh was placed in that area and it was reinforced with the use of a VersaTack. We reinforced the floor of the canal with the help also of Prolene making sure that plug does not get push out. Then, after that, we brought the ilioinguinal nerve, iliohypogastric nerve back into the inguinal canal, r econstructed the superficial inguinal ring, and closed the external oblique aponeurosis making sure t he nerves were not included. The area was irrigated. Spermatic cord structures were protected at al l times including the vas deferens. Lola's fascia was closed with 3-0 chromic and then the skin wi th yahaira. Sponge counts and instrument counts were correct. Patient tolerated the procedure well. Patient was sent to recovery in stable condition. JAMIL/JANAK Voice ID: [id number] Report ID: [id number]
--- NOTE | 2024-06-18 09:17 | DS ---
Date of Discharge: 06/16/2024 Diagnosis: Recurrent tender right inguinal hernia. Procedure: Open repair of recurrent tender right inguinal hernia with mesh. Disposition: Home. Condition: Stable. Activity: As tolerated. No heavy lifting. Discharge Instructions: Discharged to home. Follow up in my office in 1 week. Call for appointment at [phone]. Keep area dry for 48 hours, then may shower. Cold compress to the right inguinal jackson on for the next 24 hours. JAMIL/JANAK Voice ID: [id number] Report ID: [id number]
== END 2024-06-16 13:00 | disposition home or self-care (01) ==
LOC: OR 07:26
PROVIDERS: ATTEND Surgery
PROC: 0YU50JZ Supplement Right Inguinal Region with Synthetic Substitute, Open Approach (ICD-10-PCS; principal; 2024-06-16 10:15)
DX: K40.91 Unilateral inguinal hernia, without obstruction or gangrene, recurrent (principal)
CPT/HCPCS: 36415; 71046; 80048; 82947; 85025; 88302; 93005; J0690; J2001; J2405; J2704; J2710; J3010; J7030